=== PATIENT | female | born 1930 | race Hispanic/Latino ===

== ENCOUNTER 2017-04-05 12:07 | Emergency (ER) | payer MEDICARE ==
[2017-04-05 12:08] VITALS: BMI 24.3
[2017-04-05 12:22] VITALS: BP 108/74; PULSE 88; TEMP 97.8
--- NOTE | 2017-04-05 13:07 | ED PDOC ---
Arrival/HPI - General Time Seen by Provider: 04/05/17 12:12 - History of Present Illness Narrative History of Present Illness (Text): 04/05/17 12:57 86 F pertinent PMHx of dementia presents with 2 day duration of a lesion on her L LE. Patient's son at bedside providing history. He states that the patient was stepping into her car 2 days ago when she bumped her left escudero into the car door. At the time there was no bleeding or bruising but later on that night it started to swell. Yesterday, they noticed the present lesion on her left escudero, and this morning called Dr. Hernandez, who told her to come into the ER. Patient denies pain at the site of the lesion. Pt further denies F/ch/n/v/d/sob /cp. PMD: Dr. Hernandez/Dr. Yarbrough ([facility]) Past Medical History - Provider Review Nursing Documentation Reviewed: Yes - Travel History Have you recently traveled outside [place] w/in the past 3 mons?: No - Infectious Disease Hx of Infectious Diseases: None - Cardiac Hx Cardiac Disorders: Yes (CAD) - Pulmonary Hx Respiratory Disorders: Yes (lung sx) - Neurological Hx Neurological Disorder: Yes Hx Dementia: Yes - HEENT Hx HEENT Disorder: No - Renal Hx Renal Disorder: No - Endocrine/Metabolic Hx Endocrine Disorders: Yes Hx Hypothyroidism: Yes - Hematological/Oncological Hx Blood Disorders: Yes Hx Cancer: Yes (lung, pancreatic cancer) - Integumentary Hx Dermatological Disorder: No - Musculoskeletal/Rheumatological Hx Musculoskeletal Disorders: Yes Hx Falls: Yes - Gastrointestinal Hx Gastrointestinal Disorders: Yes (DIVERTICULITIS) - Genitourinary/Gynecological Hx Genitourinary Disorders: Yes (INCONTINENCE,UTI,) Hx Reproductive Disorders: No - Psychiatric Hx Anxiety: Yes Hx Depression: No Hx Emotional Abuse: No Hx Physical Abuse: No Hx Substance Use: No - Anesthesia Hx Anesthesia: Yes Hx Anesthesia Reactions: No - Suicidal Assessment Feels Threatened In Home Enviroment: No Family/Social History - Physician Review Nursing Documentation Reviewed: Yes Family/Social History: Unknown Family HX Smoking Status: Former Smoker Hx Alcohol Use: No Hx Substance Use: No Hx Substance Use Treatment: No Allergies/Home Meds Allergies/Adverse Reactions: Allergies tetanus and diphtheria toxoids Allergy (Verified 04/05/17 12:16) SWELLING Home Medications: Home Meds Medication Instructions Recorded Confirmed Levothyroxine Sodium 50 mcg PO DAILY 02/16/12 04/05/17 [Levothyroxine] Lorazepam [Ativan] 1 mg PO Q12 02/16/12 04/05/17 Ergocalciferol [Vitamin D] 50,000 iu PO SUN 02/23/15 04/05/17 Memantine HCl [Namenda] 10 mg PO DAILY 02/23/15 04/05/17 Risperidone [Risperdal] 0.5 mg PO Q12 02/23/15 04/05/17 Rivastigmine 9.5 mg/24 hr [Exelon 1 patch TD DAILY 02/23/15 04/05/17 9.5 mg/24 hr Patch] Venlafaxine [Effexor XR] 150 mg PO Q12 02/23/15 04/05/17 Review of Systems - Review of Systems Constitutional: Normal. absent: Fatigue, Weight Change, Fevers Eyes: Normal. absent: Vision Changes, Photophobia ENT: Normal. absent: Hearing Changes, Tinnitus, Voice Changes Respiratory: Normal. absent: SOB, Cough, Sputum Cardiovascular: Normal. absent: Chest Pain, Palpitations, Edema, HARPER Gastrointestinal: Normal. absent: Abdominal Pain, Diarrhea, Nausea, Vomiting, Hematochezia, Hematemesis Genitourinary Female: Normal. absent: Dysuria, Frequency, Hematuria Musculoskeletal: Other (LLE lesion on anterior escudero). absent: Arthralgias, Back Pain, Neck Pain Skin: Other (LLE lesion) Neurological: Normal. absent: Headache, Dizziness, Focal Weakness Endocrine: Normal. absent: Diaphoresis, Polyuria Hemo/Lymphatic: Normal. absent: Adenopathy, Easy Bleeding Psychiatric: Normal. absent: Anxiety, Depression, Suicidal Ideation Physical Exam Vital Signs Reviewed: Yes Temperature: Afebrile Blood Pressure: Normal Pulse: Regular Respiratory Rate: Normal Appearance: Positive for: Well-Appearing, Non-Toxic, Comfortable Pain Distress: None Mental Status: Positive for: Alert and Oriented X 3 - Systems Exam Head: Present: Atraumatic, Normocephalic Pupils: Present: PERRL Extroacular Muscles: Present: EOMI Conjunctiva: Present: Normal Mouth: Present: Moist Mucous Membranes Neck: Present: Normal Range of Motion Respiratory/Chest: Present: Clear to Auscultation, Good Air Exchange. No: Respiratory Distress, Accessory Muscle Use Cardiovascular: Present: Regular Rate and Rhythm, Normal S1, S2. No: Murmurs Abdomen: Present: Normal Bowel Sounds. No: Tenderness, Distention, Peritoneal Signs Back: Present: Normal Inspection Upper Extremity: Present: Normal Inspection. No: Cyanosis, Edema Lower Extremity: Present: NORMAL PULSES, Normal ROM, Other (LLE erythematous blister with surrounding purple ecchymosis) Neurological: Present: GCS=15, CN II-XII Intact, Speech Normal Skin: Present: Warm, Dry, Normal Color. No: Rashes Psychiatric: Present: Alert, Oriented x 3, Normal Insight, Normal Concentration Medical Decision Making ED Course and Treatment: Assessed 04/05/17 12:27 Impression: 86 y/o F with extensive PMHx presenting with LLE lesion indicative of a blister. Plan: -- B/l LE Duplex -- Blister was incised and drained -- Will send home with PO antibiotics --Reassess Reassessed 04/05/17 13:29 B/l LE Duplex non-significant for DVT Send home on PO Bactrim X 7 days No pain management needed Follow up with Dr. Hernandez in one week (Justyn Chin) 04/05/17 13:34 Patient Seen With Resident: Patient was seen and evaluated with resident. Came up with plan and treatment together. regarding triage note which mentions weakness, the pts family states she is chronically weak and currently at her baseline. small blister on escudero, broke during my exam- serous drainage non-purulent- cleaned and dressed. (Luis Cruz) - RAD Interpretation Radiology Orders: 04/05/17 12:53 TIBIA FIBULA LEFT [RAD] Stat DUPLEX LOWER EXTRM VEIN BILAT [US] Stat Disposition/Present on Arrival - Present on Arrival Any Indicators Present on Arrival: No History of DVT/PE: No History of Uncontrolled Diabetes: No Urinary Catheter: No History of Decub. Ulcer: No History Surgical Site Infection Following: None - Disposition Have Diagnosis and Disposition been Completed?: Yes Disposition Time: 14:10 Patient Plan: Discharge - Disposition Diagnosis: Blister Disposition: HOME/ ROUTINE Condition: IMPROVED Additional Instructions: Ms. Young, thank you for letting us take care of you today. Your providers were Dr. Cruz and Dr. Chin. You were treated for Left Lower Extremity Blister. The emergency medical care you received today was directed at your acute symptoms. If you were prescribed any medication, please fill it and take as directed. It may take several days for your symptoms to resolve. Return to the Emergency Department if your symptoms worsen, do not improve, or if you have any other problems. Please contact your doctor or call one of the physicians/clinics you have been referred to that are listed on the Patient Visit Information form that is included in your discharge packet. Bring any paperwork you were given at discharge with you along with any medications you are taking to your follow up visit. Our treatment cannot replace ongoing medical care by a primary care provider (PCP) outside of the emergency department. Thank you for allowing the [facility] team to be part of your care today. If you had an X-Ray or CT scan: A Radiologist will review the ED reading if any change in treatment is needed we will contact you. If you had a blood, urine, or wound culture: It will take several days for the results, if any change in treatment is needed we will contact you. If you had an STI test: It will take 48 hours for the results. Please call after 1 week if you have not heard back. Prescriptions: Bacitracin Ointment [Bacitracin] 30 gm TOP DAILY PRN #1 tube PRN Reason: Inflammation Sulfamethoxazole/Trimethoprim [Bactrim DS 800 mg-160 mg] 1 tab PO DAILY #7 tab Sulfamethoxazole/Trimethoprim [Bactrim DS 800 mg-160 mg] 1 tab PO BID 7 Days Referrals: Wilfredo Hernandez MD [Primary Care Provider] - Follow up with primary Forms: [employer] (Spanish)
[2017-04-05 14:17] VITALS: RESP 16; O2SAT 98
--- NOTE | 2017-04-05 14:27 | RAD ---
PROCEDURE: Radiographs of the left tibia and fibula. HISTORY: left leg pain COMPARISON: None available. TECHNIQUE: Frontal and lateral views obtained. FINDINGS: BONES: No fracture or destructive lesion. JOINT SPACES: Unremarkable. OTHER FINDINGS: None. IMPRESSION: Unremarkable radiographs of the left tibia and fibula.
--- NOTE | 2017-04-05 19:54 | US ---
HISTORY: Leg pain and swelling. Evaluate for DVT PHYSICIAN(S): Khio Pitts MD. TECHNIQUE: Duplex sonography and color-flow Doppler with graded compression were used to evaluate the deep venous systems of both lower extremities. FINDINGS: The visualized deep venous systems of both lower extremities are sonographically normal and compressible. Normal wave forms and augmentation are seen. There is no sonographic evidence for deep venous thrombosis in the visualized segments of both lower extremities. IMPRESSION: No sonographic evidence for deep venous thrombosis in the visualized segments of both lower extremities.
== END 2017-04-05 14:17 | disposition home or self-care (01) ==
LOC: ED 12:07
DX: S80.822A Blister (nonthermal), left lower leg, initial encounter (principal); W22.8XXA Striking against or struck by other objects, initial encounter; Y93.89 Activity, other specified; Y92.89 Other specified places as the place of occurrence of the external cause; I25.10 Atherosclerotic heart disease of native coronary artery without angina pectoris; F03.90 Unspecified dementia, unspecified severity, without behavioral disturbance, psychotic disturbance, mood disturbance, and anxiety

== ENCOUNTER 2017-05-10 15:38 | Emergency (ER) | payer MEDICARE ==
[2017-05-10 15:45] VITALS: BMI 28.3
[2017-05-10 15:53] VITALS: RESP 18; TEMP 97
[2017-05-10] MEDS ORDERED: Lidocaine 1%/Epinephrine 1:100000 30 ml vial IJ STA (16:19)
--- NOTE | 2017-05-10 16:29 | ED PDOC ---
Arrival/HPI - General Chief Complaint: Trauma Time Seen by Provider: 05/10/17 15:51 Historian: Patient, Family - History of Present Illness Narrative History of Present Illness (Text): 05/10/17 16:26 86 yo F w/ pmh of dementia presents to the ER after she was sitting on the wheelchair at home, then as she leaned forward she fell off the wheelchair and hit her head on the floor sustaining head trauma and L sided forehead laceration. When her family found her she was crawled up laying on the ground and was c/o low back pain and R arm pain. Otherwise: (-) loss of consciousness , (-) nausea, (-) vomiting, (-) severe headache, (-) other injury, (-) neck pain , (-) chest pain, (-) abdominal pain, (-) anticoagulants. PMD [place] Past Medical History - Provider Review Nursing Documentation Reviewed: Yes - Infectious Disease Hx of Infectious Diseases: None - Cardiac Hx Cardiac Disorders: Yes (CAD) - Pulmonary Hx Respiratory Disorders: Yes (lung sx) - Neurological Hx Neurological Disorder: Yes Hx Dementia: Yes - HEENT Hx HEENT Disorder: No - Renal Hx Renal Disorder: No - Endocrine/Metabolic Hx Endocrine Disorders: Yes Hx Hypothyroidism: Yes - Hematological/Oncological Hx Blood Disorders: Yes Hx Cancer: Yes (lung, pancreatic cancer) - Integumentary Hx Dermatological Disorder: No - Musculoskeletal/Rheumatological Hx Musculoskeletal Disorders: Yes Hx Falls: Yes - Gastrointestinal Hx Gastrointestinal Disorders: Yes (DIVERTICULITIS) - Genitourinary/Gynecological Hx Genitourinary Disorders: Yes (INCONTINENCE,UTI,) Hx Reproductive Disorders: No - Psychiatric Hx Anxiety: Yes Hx Depression: No Hx Emotional Abuse: No Hx Physical Abuse: No Hx Substance Use: No - Anesthesia Hx Anesthesia: Yes Hx Anesthesia Reactions: No - Suicidal Assessment Feels Threatened In Home Enviroment: No Family/Social History - Physician Review Nursing Documentation Reviewed: Yes Family/Social History: No Known Family HX Smoking Status: Former Smoker Hx Alcohol Use: No Hx Substance Use: No Hx Substance Use Treatment: No Allergies/Home Meds Allergies/Adverse Reactions: Allergies tetanus and diphtheria toxoids Allergy (Verified 04/05/17 12:16) SWELLING Home Medications: Home Meds Medication Instructions Recorded Confirmed Lorazepam [Ativan] 1 mg PO DAILY 02/16/12 05/10/17 Memantine HCl [Namenda] 10 mg PO BID 02/23/15 05/10/17 Rivastigmine 9.5 mg/24 hr [Exelon 1 patch TD DAILY 02/23/15 05/10/17 9.5 mg/24 hr Patch] Venlafaxine [Effexor XR] 150 mg PO Q12 02/23/15 05/10/17 Ergocalciferol [Drisdol 50,000 1 cap PO Q7D 05/10/17 05/10/17 Intl Units Cap] LORazepam [Ativan] 1 tab PO HS 05/10/17 05/10/17 Levothyroxine [Synthroid] 1 tab PO DAILY 05/10/17 05/10/17 Review of Systems - Review of Systems Constitutional: Normal. absent: Fatigue, Weight Change, Fevers Respiratory: Normal. absent: SOB, Cough, Wheezing Cardiovascular: Normal. absent: Chest Pain, Palpitations, Edema Musculoskeletal: Normal, Back Pain. absent: Arthralgias, Neck Pain Skin: Normal, Laceration. absent: Rash, Skin Lesions Neurological: Normal. absent: Headache, Dizziness, Focal Weakness Physical Exam - Physical Exam Narrative Physical Exam (Text): 05/10/17 16:29 GENERAL APPEARANCE: Patient is awake, alert, oriented x 1 - self only, in no acute distress. SKIN: Warm, dry; (-) cyanosis, (+) 2 <1 cm laceration and 1 measuring 3 cm deep laceration to the L side of the forehead,. HEAD: (-) swelling and tenderness, with no palpable bony defect. EYES: (-) conjunctival pallor, (-) scleral icterus, (-) nystagmus. ENMT: Mucous membranes moist. (-) Borja's sign. TMs: (-) blood. Nose: (- ) tenderness, (-) rhinorrhea. No oral trauma. Pharynx clear. Airway patent: (-) stridor. Full ROM of mandible without pain. NECK: (-) tenderness, (-) stiffness, (-) lymphadenopathy. CHEST AND RESPIRATORY: (-) chest wall tenderness. Lungs: (-) rales, (-) rhonchi, (-) wheezes; breath sounds equal bilaterally. HEART AND CARDIOVASCULAR: (-) irregularity; (-) murmur, (-) gallop. ABDOMEN AND GI: Soft; (-) tenderness. BACK: (-) tenderness. EXTREMITIES: (-) deformity, (-) tenderness, (-) limitation of motion NEURO AND PSYCH: GCS=15. Mental status as above. Has some memory of episode; lining baster: Pupils equal & reactive . EOMI. (-) facial asymmetry. Tongue and uvula midline. Strength 5/5 in all extremities. No gross sensory deficits. DTRs symmetric. Vital Signs Temp Pulse Resp BP Pulse Ox 05/10/17 18:19 89 18 142/72 96 05/10/17 15:50 97.0 F L 105 H 18 142/98 H 97 Medical Decision Making ED Course and Treatment: 05/10/17 16:30 86 yo F w/ pmh of dementia presents to the ER after she feel off of her wheelchair at home, sustaining head trauma and L sided forehead laceration. Plan : - CT head - XR R humerus - XR L spine - Laceration repair XR R humerus : (+) moderate djd, (-) fracture, (-) dislocation, as read by PA XR L spine : (+) severe djd, ? compression fracture of L1 - L3, possibly old, as read by PA CT head : (-) acute abnormality, as read by PA On-reevaluation, patient remains awake, alert, in no distress, resting in bed comfortably. XR L spine sent to the radiologist for reading. XR reading by radiologist d/w the family, likely the vertebral compression fractures are old and not new. Diagnostic results d/w the patient and family in great detail. Device Test Engineer instructed on proper wound care and advised to have the wound removed after 5 days. Advised to follow up with primary care physician in 1-2 days without fail. Return to the emergency room at any time for any new or worsening symptoms. - RAD Interpretation Narrative RAD Interpretations (Text): 05/10/17 17:38 XR R humerus : FINDINGS: BONES: There is diffuse bone demineralization. There is no acute displaced fracture or bone destruction. There is moderate degenerative osteoarthrosis in the acromioclavicular and glenohumeral joint spaces. SOFT TISSUES: Normal. OTHER FINDINGS: None. IMPRESSION: No acute fracture or dislocation. XR L spine : FINDINGS: BONES: There is severe dextroscoliosis in the lumbar spine. There is diffuse bone demineralization. There are age indeterminate superior endplate compression deformities in the L1 and L3 vertebral bodies. Bone alignment is normal. There is exaggerated lumbar lordosis. DISC SPACES: Unremarkable. OTHER FINDINGS: None. IMPRESSION: Severe diffuse bone demineralization. Age indeterminate superior endplate compression deformities in the L1 and L3 vertebral bodies. CT head : FINDINGS: HEMORRHAGE: No intracranial hemorrhage. BRAIN: There are severe chronic microangiopathic changes. There is no mass, mass effect or abnormal extra-axial fluid collection. VENTRICLES: There is moderate age-related global parenchymal volume loss and proportionate enlargement of the ventricles and cortical sulci. CALVARIUM: There is a there is no calvarial fracture. There is mild left frontal soft tissue swelling. PARANASAL SINUSES: There is a retention cyst/ polyp in the right maxillary sinus. The remaining included paranasal sinuses are predominantly clear. MASTOID AIR CELLS: Predominantly clear. OTHER FINDINGS: None. IMPRESSION: No acute intracranial abnormality. Severe chronic microangiopathic changes and moderate age-related global parenchymal volume loss. Radiology Orders: 05/10/17 16:18 HEAD W/O CONTRAST [CT] Stat 05/10/17 16:19 HUMERUS RIGHT [RAD] Stat LS SPINE WITH OBL > 18 YRS OLD [RAD] Stat - Medication Orders Current Medication Orders: Discontinued Medications Lidocaine/Epinephrine (Lidocaine 1%/Epinephrine 1:535329 30 Ml) 5 ml IJ STAT STA Stop: 05/10/17 16:20 Last Admin: 05/10/17 17:20 Dose: Not Given Non-Admin Reason: Agitation Procedure: Wound Repair - Time Performed Time Performed: 16:31 - Time Out Time Out: Side verified, Site verified, Patient ID confirmed - Consent Obtained Consent obtained: Verbal - Performed by Performed by: Mid-level Provider - Indications Indication(s):: Laceration - Location Location:: Left, Face (forehead) Shape:: Linear Dimensions Length cm: 3 Depth:: Epidermis - Anesthetic Technique Anesthetic Technique: Local Local/Regional Anesthetic:: Lidocaine 1% w/epi - Debris Debris:: None - Irrigated Irrigated with ml of normal saline: 50 - Complexity Complexity:: Intermediate (2 layer) - Wound repair method Sutures:: Size (6, 6-0 nylon. 2, 5-0 vicryl), Technique (simple interrupted) - PA / ENVIR[employer]MENT[employer] HE[employer] AND SAFETY INTERN / Resident Statement MD/DO has reviewed & agrees with the documentation as recorded. Disposition/Present on Arrival - Present on Arrival Any Indicators Present on Arrival: No History of DVT/PE: No History of Uncontrolled Diabetes: No Urinary Catheter: No History of Decub. Ulcer: No History Surgical Site Infection Following: None - Disposition Have Diagnosis and Disposition been Completed?: Yes Diagnosis: Head trauma, Facial laceration, Back pain Disposition: HOME/ ROUTINE Disposition Time: 18:10 Patient Plan: Discharge Condition: STABLE Discharge Instructions (ExitCare): Care For Your Stitches (ED), Laceration (ED) , Vertebral Compression Fracture (ED), Head Injury (ED) Print Language: MONGOLIAN Additional Instructions: Thank you for letting us take care of you today. You were treated for head trauma, facial laceration, fall. The emergency medical care you received today was directed at your acute symptoms. Return to the Emergency Department if your symptoms worsen, do not improve, or if you have any other problems. Please contact your doctor in 2 days for re-evaluation and follow up. Bring any paperwork you were given at discharge with you along with any medications you are taking to your follow up visit. Our treatment cannot replace ongoing medical care by a primary care provider (PCP) outside of the emergency department. Thank you for allowing the [facility] team to be part of your care today. Referrals: Wilfredo Hernandez MD [Primary Care Provider] - Follow up with primary Forms: [employer] (Greenlandic)
--- NOTE | 2017-05-10 17:05 | CT ---
PROCEDURE: CT HEAD WITHOUT CONTRAST. HISTORY: Trauma COMPARISON: None available. TECHNIQUE: Axial computed tomography images were obtained through the head/brain without intravenous contrast. Radiation dose: Total exam DLP = 678.13 mGy-cm. This CT exam was performed using one or more of the following dose reduction techniques: Automated exposure control, adjustment of the mA and/or kV according to patient size, and/or use of iterative reconstruction technique. FINDINGS: HEMORRHAGE: No intracranial hemorrhage. BRAIN: There are severe chronic microangiopathic changes. There is no mass, mass effect or abnormal extra-axial fluid collection. VENTRICLES: There is moderate age-related global parenchymal volume loss and proportionate enlargement of the ventricles and cortical sulci. CALVARIUM: There is a there is no calvarial fracture. There is mild left frontal soft tissue swelling. PARANASAL SINUSES: There is a retention cyst/ polyp in the right maxillary sinus. The remaining included paranasal sinuses are predominantly clear. MASTOID AIR CELLS: Predominantly clear. OTHER FINDINGS: None. IMPRESSION: No acute intracranial abnormality. Severe chronic microangiopathic changes and moderate age-related global parenchymal volume loss.
--- NOTE | 2017-05-10 17:48 | RAD ---
PROCEDURE: Radiographs of the Lumbar Spine. HISTORY: Fall COMPARISON: No prior. FINDINGS: BONES: There is severe dextroscoliosis in the lumbar spine. There is diffuse bone demineralization. There are age indeterminate superior endplate compression deformities in the L1 and L3 vertebral bodies. Bone alignment is normal. There is exaggerated lumbar lordosis. DISC SPACES: Unremarkable. OTHER FINDINGS: None. IMPRESSION: Severe diffuse bone demineralization. Age indeterminate superior endplate compression deformities in the L1 and L3 vertebral bodies.
--- NOTE | 2017-05-10 17:52 | RAD ---
PROCEDURE: Radiographs of the right humerus. HISTORY: Fall COMPARISON: None. FINDINGS: BONES: There is diffuse bone demineralization. There is no acute displaced fracture or bone destruction. There is moderate degenerative osteoarthrosis in the acromioclavicular and glenohumeral joint spaces. SOFT TISSUES: Normal. OTHER FINDINGS: None. IMPRESSION: No acute fracture or dislocation.
[2017-05-10 18:19] VITALS: BP 142/72; PULSE 89; O2SAT 96
== END 2017-05-10 18:30 | disposition home or self-care (01) ==
LOC: ED 15:38
DX: S01.81XA Laceration without foreign body of other part of head, initial encounter (principal); S09.90XA Unspecified injury of head, initial encounter; W05.0XXA Fall from non-moving wheelchair, initial encounter; M54.9 Dorsalgia, unspecified

== ENCOUNTER 2017-12-17 16:52 | Emergency (ER) | payer MEDICARE ==
[2017-12-17 16:52] VITALS: BMI 28.3
[2017-12-17 17:05] VITALS: RESP 18; TEMP 97.5; O2SAT 97
--- NOTE | 2017-12-17 17:33 | ED PDOC ---
Arrival/HPI - General Chief Complaint: Trauma Time Seen by Provider: 12/17/17 17:06 Historian: Family - History of Present Illness Narrative History of Present Illness (Text): 12/17/17 17:26 87yo female with past medical history of Dementia bib the family for forehead and right lower leg laceration s/p trauma. the daughter by the bedside states patient leaned foreward, while sitting on a chair and fell down sustaining a laceration. The daughter states the family was there when she fell and they cleaned her up and took her out. The daughter states they brought her to Emergency department because she became agitated when they came back from a restaurant and started bleeding again. Patient also have laceration to same left forehead last year and it was sutured here in Emergency department. Otherwise they denies LOC, focal weakness, nausea, vomiting, any other complaint. PT denies pain to any body part. Past Medical History - Provider Review Nursing Documentation Reviewed: Yes - Infectious Disease Hx of Infectious Diseases: None - Reproductive Menopause: Yes - Cardiac Hx Cardiac Disorders: Yes (CAD) - Pulmonary Hx Respiratory Disorders: Yes (lung sx) - Neurological Hx Neurological Disorder: Yes Hx Dementia: Yes - HEENT Hx HEENT Disorder: No - Renal Hx Renal Disorder: No - Endocrine/Metabolic Hx Endocrine Disorders: Yes Hx Hypothyroidism: Yes - Hematological/Oncological Hx Blood Disorders: Yes Hx Cancer: Yes (lung, pancreatic cancer) - Integumentary Hx Dermatological Disorder: No - Musculoskeletal/Rheumatological Hx Musculoskeletal Disorders: Yes Hx Falls: Yes - Gastrointestinal Hx Gastrointestinal Disorders: Yes (DIVERTICULITIS) - Genitourinary/Gynecological Hx Genitourinary Disorders: Yes (INCONTINENCE,UTI,) Hx Reproductive Disorders: No - Psychiatric Hx Anxiety: Yes Hx Depression: No Hx Emotional Abuse: No Hx Physical Abuse: No Hx Substance Use: No - Anesthesia Hx Anesthesia: Yes Hx Anesthesia Reactions: No - Suicidal Assessment Feels Threatened In Home Enviroment: No Family/Social History - Physician Review Nursing Documentation Reviewed: Yes Family/Social History: Unknown Family HX Smoking Status: Former Smoker Hx Alcohol Use: No Hx Substance Use: No Hx Substance Use Treatment: No Allergies/Home Meds Allergies/Adverse Reactions: Allergies tetanus and diphtheria toxoids Allergy (Verified 04/05/17 12:16) SWELLING Home Medications: Home Meds Medication Instructions Recorded Confirmed Lorazepam [Ativan] 1 mg PO DAILY 02/16/12 05/10/17 Memantine HCl [Namenda] 10 mg PO BID 02/23/15 05/10/17 Rivastigmine 9.5 mg/24 hr [Exelon 1 patch TD DAILY 02/23/15 05/10/17 9.5 mg/24 hr Patch] Venlafaxine [Effexor XR] 150 mg PO Q12 02/23/15 05/10/17 Ergocalciferol [Drisdol 50,000 1 cap PO Q7D 05/10/17 05/10/17 Intl Units Cap] LORazepam [Ativan] 1 tab PO HS 05/10/17 05/10/17 Levothyroxine [Synthroid] 1 tab PO DAILY 05/10/17 05/10/17 Review of Systems - Physician Review All systems were reviewed & negative as marked: Yes - Review of Systems Constitutional: Normal Eyes: Normal ENT: Normal Respiratory: Normal Cardiovascular: Normal Gastrointestinal: Normal Genitourinary Female: Normal Musculoskeletal: Normal Skin: Laceration (Forehead and right lower leg) Neurological: Normal Endocrine: Normal Hemo/Lymphatic: Normal Psychiatric: Normal Physical Exam Vital Signs Reviewed: Yes Vital Signs Temp Pulse Resp BP Pulse Ox 12/17/17 19:28 99 H 18 148/50 L 97 12/17/17 17:04 97.5 F L 100 H 18 150/43 L 97 Temperature: Afebrile Blood Pressure: Normal Pulse: Regular Respiratory Rate: Normal Appearance: Positive for: Well-Appearing, Non-Toxic, Comfortable Pain Distress: None Mental Status: Positive for: Alert and Oriented X 3 - Systems Exam Head: Present: Atraumatic, Normocephalic Pupils: Present: PERRL Extroacular Muscles: Present: EOMI Conjunctiva: Present: Normal Mouth: Present: Moist Mucous Membranes Neck: Present: Normal Range of Motion Respiratory/Chest: Present: Clear to Auscultation, Good Air Exchange. No: Respiratory Distress, Accessory Muscle Use Cardiovascular: Present: Regular Rate and Rhythm, Normal S1, S2. No: Murmurs Abdomen: No: Tenderness, Distention, Peritoneal Signs Back: Present: Normal Inspection Upper Extremity: Present: Normal Inspection. No: Cyanosis, Edema Lower Extremity: Present: Normal Inspection. No: Edema Neurological: Present: GCS=15, CN II-XII Intact, Speech Normal Skin: Present: Warm, Dry, Normal Color, Laceration (3.0cm linear laceration to left forehead and 5.0cm linear laceration to right lateral lower leg). No: Rashes Psychiatric: Present: Alert, Oriented x 3, Normal Insight, Normal Concentration Medical Decision Making ED Course and Treatment: 12/18/17 01:16 PT in Emergency department for stated history. Head CT - No acute derangement Laceration was approximated, dressed and placed on prophylactic abx. - RAD Interpretation Radiology Orders: 12/17/17 17:25 HEAD W/O CONTRAST [CT] Stat - Medication Orders Current Medication Orders: Discontinued Medications Lidocaine/Epinephrine (Lidocaine 1%/Epinephrine 1:960833 30 Ml) 15 ml IJ STAT STA Stop: 12/17/17 18:21 Procedure: Wound Repair - Consent Obtained Consent obtained: Verbal - Performed by Performed by: Mid-level Provider - Indications Indication(s):: Laceration - Location Location:: Face (Left forehead), Leg (Right) Shape:: Linear, Stellate Dimensions Length cm: 3cm and 5cm - Anesthetic Technique Local/Regional Anesthetic:: Lidocaine 1% (10) - Debris Debris:: None - Complexity Complexity:: Intermediate (2 layer) - Muscle repiar layer closed with Muscle repair layer closed with:: # (18), Size (5 and 6), Type (nylone and polysorb on face), Technique (interrupted), Wound well approximated, Abx ointment applied, Tetanus NA - Patient tolerated procedure Patient Tolerated Procedure:: Well Disposition/Present on Arrival - Present on Arrival Any Indicators Present on Arrival: No History of DVT/PE: No History of Uncontrolled Diabetes: No Urinary Catheter: No History of Decub. Ulcer: No History Surgical Site Infection Following: None - Disposition Have Diagnosis and Disposition been Completed?: Yes Diagnosis: Laceration of face, Leg laceration Disposition: HOME/ ROUTINE Disposition Time: 19:15 Patient Plan: Discharge Condition: STABLE Discharge Instructions (ExitCare): Laceration Repair, Laceration Repair With Stitches (DC) Additional Instructions: Keep wound clean and dry Return to ED for any fever, discharge, redness Follow up with your doctor in 10days for suture removal Prescriptions: Cephalexin [cephalexin] 500 mg PO TID #21 cap Referrals: Wilfredo Hernandez MD [Primary Care Provider] - Follow up with primary Forms: [employer] (Polish)
[2017-12-17] MEDS ORDERED: Lidocaine 1%/Epinephrine 1:100000 30 ml vial IJ STA (18:20)
--- NOTE | 2017-12-17 18:59 | CT ---
EXAM: CT Head Without Intravenous Contrast EXAM DATE/TIME: 12/17/2017 5:25 PM CLINICAL HISTORY: The patient age is 87 years old and is female; Injury or trauma; Fall; Initial encounter; Concussion / head injury; Additional info: Head trauma Facility exam id and description: Ct heads head w/o contrast TECHNIQUE: Axial computed tomography images of the head/brain without intravenous contrast. All CT scans at this facility use one or more dose reduction techniques, viz.: automated exposure control; ma/kV adjustment per patient size (including targeted exams where dose is matched to indication; i.e. head); or iterative reconstruction technique. Coronal and sagittal reformatted images were created and reviewed. COMPARISON: CT - HEAD W/O CONTRAST 2017-05-10 16:52 FINDINGS: Brain: There is moderate cerebral white matter hypodensity, likely representing small vessel ischemic disease in a patient this age. The acuity of the white matter disease is indeterminate. The white-perez differentiation is preserved demonstrating no acute territorial type infarct. No acute intracranial hemorrhage is seen. Midline shift: There is no midline shift. Ventricles: There is moderate prominence of the ventricles and sulci, compatible with atrophy. Bones/joints: The calvarium demonstrates no evidence for a depressed fracture. Soft tissues: There is mild soft tissue swelling of the left frontal scalp. Vasculature: There is atherosclerotic calcification of the intracranial internal carotid arteries and distal left vertebral artery. Sinuses: A mucous retention cyst or polyp is visualized within the right maxillary sinus. Mastoid air cells: No mastoid effusion. IMPRESSION: 1. No acute intracranial hemorrhage or acute territorial type infarct. There is mild soft tissue swelling of the left frontal scalp. 2. There is moderate cerebral white matter hypodensity, likely representing small vessel ischemic disease in a patient this age. 3. Moderate atrophy. 4. Paranasal sinus disease is noted above.
[2017-12-17 19:31] VITALS: BP 148/50; PULSE 99
== END 2017-12-17 19:28 | disposition home or self-care (01) ==
LOC: ED 16:52
DX: S81.811A Laceration without foreign body, right lower leg, initial encounter (principal); S01.81XA Laceration without foreign body of other part of head, initial encounter; W07.XXXA Fall from chair, initial encounter; Z87.891 Personal history of nicotine dependence; E03.9 Hypothyroidism, unspecified; I25.10 Atherosclerotic heart disease of native coronary artery without angina pectoris